=== PATIENT | female | born 1995 | race Caucasian/White ===

== ENCOUNTER → 2017-04-27 02:45 | Observation (INO) ==
[2017-04-26 23:44] LABS: Bilirubin,Urine Negative (Negative); Blood,Urine Negative (Negative); Clarity,Urine Turbid (Clear); Color,Urine Yellow (Yellow); Glucose,Urine (UA) Normal (Normal); Ketones,Urine Negative (Negative); Leukocyte Esterase,Urine Large (Negative); Nitrite,Urine Negative (Negative); PH,Urine 7.5 pH Units (5.0-8.0); Protein,Urine Trace mg/dL (Neg-Trace); Specific Gravity,Urine 1.019 (1.010-1.025); Urobilinogen,Urine Normal (Normal)
[2017-04-26 23:46] LABS: Bacteria,Urine Many per hpf (None-Few); Hyaline Casts,Urine Few per lpf (None-Few); RBC,Urine 0-3 per hpf (0-3); Squamous Epithelial Cell,Urine Many per lpf (None-Few); WBC,Urine 30-50 per hpf (0-3)
[2017-04-26 23:58] LABS: Amorphous Sediment,Urine Many (Few); Mucus,Urine Moderate (Few); Yeast,Urine Moderate per hpf (None Seen)
[2017-04-27 00:17] LABS: Basophils % 0.4 %; Eosinophils # 0.1 K/mcL (0.0-0.6); Eosinophils % 1.7 %; Hematocrit 31.8 % (35.3-44.9); Hemoglobin 10.8 g/dL (11.5-15.4); Immature Granulocytes % 0.4 % (0-4); Lymphocytes # 2.5 K/mcL (0.6-4.6); Lymphocytes % 34.3 %; Mean Corpuscular Hemoglobin 32.4 pg (28.0-33.3); Mean Corpuscular Volume 95.5 fL (83.0-100.0); Mean Platelet Volume 10.6 fL (9.4-12.4); Monocytes # 0.6 K/mcL (0.0-1.3); Monocytes % 7.8 %; Platelet Count 203 K/mcL (140-400); Red Blood Count 3.33 M/mcL (3.82-4.97); Red Cell Distribution Width 13.2 % (11.5-14.5); Segmented Neutrophils % 55.4 %
[2017-04-27 01:16] LABS: Candida DNA Not Detected (Not Detect); Gardnerella DNA Not Detected (Not Detect); Trichomonas DNA Not Detected (Not Detect)
[~2017-04-27 02:45] MED LIST: NIFEdipine 10 MG CAPSULE PO ONE; Ringers Solution, Lactated 1,000 ML IVC SCH; ceFAZolin 1,000 MG in D5% in Water (Mini-Bag+) 100 ML IVPB ONE
--- NOTE | 2017-04-27 07:16 | OB/GYN Progress Note ---
Date of Encounter: 04/27/17 Time of Encounter: 02:15 - Assessment and Plan (1) 31 weeks gestation of Status: Acute (2) UTI in Status: Acute Rx for Macrobid for 7 days (3) uterine contractions in third trimester, antepartum Status: Acute Resolved with IV hydration and PO nifedipine (4) Vaginal discharge during in third trimester Status: Acute Vaginosis panel WNL Subjective - Subjective Interval history: Pt presenting to L&D at 31 weeks with c/o pelvic cramping and spotting only when wiping. Denies leaking fluid, contractions, or recent intercourse. PN course uncomplicated. Objective - Vital Signs Vital Signs: Intake and Output 04/26/17 04/26/17 04/27/17 15:59 23:59 07:59 Intake Total 900 / 900 Balance 900 / 900 Intake: IV Fluids 900 / 900 Lactated Ringers 1,000 ML 800 / 800 @ 125 mls/hr IVC .Q8H RAMÓN Rx#:[id number] Ancef 1,000 MG In 100 / 100 Dextrose 5% (Minibag+) 100 ML 100 ML @ 200 mls/ hr IVPB ONCE ONE Rx#: [id number] Other: Weight 55 kg - Exam Abdomen: Present: soft, gravid. Absent: tenderness Cervical dilation: closed Cervix effacement: thick Comments: contractions noted on EFM. Moderate amount of discharge in vagina. - Labs Labs: Abnormal lab results RBC 3.33 M/mcL (3.82-4.97) L 04/27/17 00:05 Hgb 10.8 g/dL (11.5-15.4) L 04/27/17 00:05 Hct 31.8 % (35.3-44.9) L 04/27/17 00:05 Urine Clarity Turbid (Clear) A 04/26/17 23:36 Ur Leukocyte Esterase Large (Negative) H 04/26/17 23:36 Urine Microscopic WBC 30-50 per hpf (0-3) H 04/26/17 23:36 Ur Squamous Epith Cells Many per lpf (None-Few) H 04/26/17 23:36 Amorphous Sediment Many (Few) H 04/26/17 23:36 Urine Bacteria Many per hpf (None-Few) H 04/26/17 23:36 Urine Mucus Moderate (Few) H 04/26/17 23:36 Urine Yeast Moderate per hpf (None Seen) H 04/26/17 23:36 Ur Culture Indicated? YES (NO) A 04/26/17 23:36
== END | disposition home or self-care (01) ==
LOC: 1NENULAB

== ENCOUNTER 2017-05-07 19:38 | Observation (INO) ==
[2017-05-07 19:58] VITALS: BP 119/57
--- NOTE | 2017-05-07 20:59 | OB/GYN Progress Note ---
Date of Encounter: 05/07/17 Time of Encounter: 20:56 - Assessment and Plan (1) 33 weeks gestation of Current Visit: Yes Status: Acute (2) NST (non-stress test) reactive Current Visit: Yes Status: Acute (3) uterine contractions in third trimester, antepartum Current Visit: No Status: Acute SVE closed and thick. No history of delivery. Uterine irritability noted on toco. Suspect uterine irritation from untreated UTI. Discharge home with precautions. Keflex rx given. Hydration discussed at length. Follow-up as scheduled. (4) UTI in Current Visit: No Status: Acute Subjective - Subjective Principal diagnosis: cramping Interval history: 21 year-old presenting at 33 weeks with c/o intermittent cramping for the last 2 hours. She states she was at work when the cramping started and it was occuring frequently. She denies LOF or VB. Good FM. She was given Macrobid recently for a UTI but did not take it because it made her sick. She does report lower back pain yesterday and continued urinary frequency. No fever, chills, or flank pain. No vaginal discharge, itching, or burning. Antepartum ROS: movement normal, contractions, no loss of fluid, no vaginal bleeding Objective - Vital Signs Vital Signs: Vital Signs Temp Pulse Resp BP 05/07/17 19:49 98.7 F 99 16 119/57 Intake and Output 05/07/17 05/07/17 05/07/17 07:59 15:59 23:59 Other: Weight 56 kg Patient Weight 05/07/17 23:59 Weight 56 kg - Exam FHR: category 1 FHR comments: NST reactive Abdomen: Present: soft, gravid. Absent: tenderness Uterus: Present: normal. Absent: tenderness Cervical dilation: closed, thick, high Comments: negative CVAT
== END 2017-05-07 21:00 | disposition home or self-care (01) ==
LOC: 1NENULAB
PROVIDERS: ADMIT Obstetrics & Gynecology; ATTEND Obstetrics & Gynecology

== ENCOUNTER → 2017-06-18 23:15 | Observation (INO) ==
--- NOTE | 2017-06-18 22:22 | OB/GYN History & Physical ---
Date of Encounter: 06/18/17 Time of Encounter: 22:19 History of Present Illness Chief complaint: Contractions HPI: Ms. Anderson is a 22 year old female at 39 weeks and 2 days presenting with contractions. Endorses active movement. Denies vaginal bleeding. Denies leakage of fluid. She follows with Dr. Yeh for care, Pt denies STEVENSON, vision disturbance, SOB, N/V/D. Past Med Surg Social Fam HX - Past Medical History Medical history: no medical history Psychiatric history: depression - Past Surgical History Surgical History: other - Social History Smoking Status: Current every day smoker Packs per day: 0.5 Smokeless Tobacco Status: No Alcohol use: none Drug use: none - Family History Mother Living Status: Still Living Hx Family Cardiac Disorders: No Hx Family Respiratory Disorders: No Hx Family Cancer: No Hx Family GI Disorders: No Hx Family Genitourinary Disorders: No Hx Family Endocrine Disorder: No Hx Family Musculoskeletal Disorders: No Hx Family Neuromuscular Disorders: No Hx Family Neurologic Disorders: No Hx Family HEENT Disorders: No Hx Family Autoimmune Disorders: No Hx Family Reproductive Disorders: No Hx Family Psychosocial Disorders: No Hx Family Medical Disorders: Yes (hysterectomy) Obstetrical History - Pregnancies : 3 Medications and Allergies Daily Combo Pack 1 tab PO DAILY 04/26/17 [History] Nitrofurantoin (BID) [Macrobid] 100 mg PO BID #14 capsule 04/27/17 [Rx] cephALEXin [Keflex] 500 mg PO BID #14 capsule 05/07/17 [Rx] Allergies No Known Allergies Allergy (Verified 04/26/17 23:30) Results All other labs normal. - VTE Reasons for not Prescribing Prophylaxis: Medical contraindication
--- NOTE | 2017-06-18 22:29 | OB/GYN Progress Note ---
Date of Encounter: 06/18/17 Time of Encounter: 22:25 - Assessment and Plan (1) 39 weeks gestation of Current Visit: Yes Status: Acute Pt receives appropriate care with Dr. Yeh (2) NST (non-stress test) reactive Current Visit: No Status: Acute Baseline 135 - 145 bmp NST reassuring (3) Uterine contractions during Current Visit: Yes Status: Acute Will monitor for change in cervical dilation On admission at 1/75/ballotable on admission Plan for repeat cervical dilation 2 hours from first cervical exam Plan discussed with Dennis TORRES No cervical change will discharge to home with labor precautions. Pt verbalizes understanding. Subjective - Subjective Principal diagnosis: Contractions Interval history: Ms. Anderson is a 22 year old female at 39+2 presenting with contractions this evening. Endorses active movement. Denies vaginal bleeding or leakage of fluid. She follows with Dr. Yeh for care, Pt denies STEVENSON, vision disturbance, SOB, N/V/D. Pt's was complicated by a diagnosis of anemia in two months prior to this visit, however pt has not taken recommended iron supplementation. Last US SGA labs: A+/ GBS Negative/ Rubella Immune/ Varicella IgG Positive/all other serologies negative. Antepartum ROS: new complaints, movement normal, contractions, no loss of fluid, no vaginal bleeding Objective - Vital Signs Vital Signs: Intake and Output 06/18/17 06/18/17 06/18/17 07:59 15:59 23:59 Other: Weight 57.5 kg Patient Weight 06/18/17 23:59 Weight 57.5 kg - Exam FHR: auscultation normal FHR comments: Baseline: 135 Auscultation: bilateral: normal Abdomen: Present: normal appearance, soft, gravid Uterus: Present: normal. Absent: tenderness Cervical dilation: 1, performed by RN Cervix effacement: 75 station: ballotable
== END | disposition home or self-care (01) ==
LOC: 1NENULAB
PROVIDERS: ADMIT Advanced Practice Midwife; ATTEND Advanced Practice Midwife

== ENCOUNTER 2017-06-19 02:55 | Inpatient (IN) ==
[2017-06-19] MEDS ORDERED: Famotidine 20 MG/2 ML VIAL IVP PRN (02:57)
[2017-06-19] MEDS ORDERED: Naloxone 0.4 MG/ML INJ IVP PRN (02:57)
[2017-06-19] MEDS ORDERED: Metoclopramide 10 MG/2 ML VIAL IVP PRN (02:57)
[2017-06-19] MEDS ORDERED: *HR* Nalbuphine 20 MG/ML AMPUL IVP PRN (03:00)
[2017-06-19] MEDS ORDERED: Ringers Solution, Lactated 1,000 ML IVC SCH (03:00)
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
[2017-06-19] MEDS ORDERED: Lidocaine 1% 20 ML MDV ONE (03:11)
[2017-06-19] MEDS ORDERED: Oxytocin 20 units/ LR 1000 mL 20 UNIT/1,000 ML BAG IVC ONE ×2 (03:12→07:08)
[2017-06-19 03:17] LABS: Basophils % 0.2 %; Eosinophils % 0.5 %; Hematocrit 35.5 % (35.3-44.9); Hemoglobin 11.9 g/dL (11.5-15.4); Immature Granulocytes % 0.4 % (0-4); Lymphocytes # 3.2 K/mcL (0.6-4.6); Lymphocytes % 37.6 %; Mean Corpuscular HGB Conc 33.5 g/dL (31.6-35.5); Mean Corpuscular Hemoglobin 31.4 pg (28.0-33.3); Mean Corpuscular Volume 93.7 fL (83.0-100.0); Monocytes # 0.5 K/mcL (0.0-1.3); Neutrophils # 4.7 K/mcL (1.6-8.9); Platelet Count 234 K/mcL (140-400); Red Blood Count 3.79 M/mcL (3.82-4.97); Red Cell Distribution Width 13.6 % (11.5-14.5); Segmented Neutrophils % 55.3 %
[2017-06-19] MEDS ORDERED: Epidural Premix (fent/bupiv) 110 ML EP ONE (03:19)
[2017-06-19] MEDS ORDERED: *HR* FentaNYL (PF) 100 MCG/2 ML VIAL ONE (03:46)
[2017-06-19] MEDS ORDERED: Bupivacaine-MPF 0.25% 10 ML VIAL ONE (03:47)
--- NOTE | 2017-06-19 04:14 | Anesthesia Evaluation PreOp ---
Date of Encounter: 06/19/17 Time of Encounter: 03:52 - Past History Planned Operation: vaginal del, , 8cm Cardiac History: Denies any Significant Hx Pulmonary History: Denies Any Significant HX SENIOR GAMEMASTER History: Denies Any Significant HX Other Medical History: Other (? drug usage, patient unsure) Anesthesia History: No Prior Anesthetic Complications, Past Anesthesia ( previous epidural x1,) : Yes (term) Alcohol Use: none Drug use: none Medications and Allergies No Known Home Drugs 06/19/17 [History] Allergies No Known Allergies Allergy (Verified 06/19/17 02:59) Anesthesia Results - Labs 06/19/17 02:55 Anesthesia Exam - HEENT Pupil (Motor): Pupils equal Mallampati: III Teeth: Normal Oral Opening: Greater than 3 - SENIOR GAMEMASTER LOC: Oriented SENIOR GAMEMASTER Motor: Normal RUE, Normal LUE, Normal RLE, Normal LLE, Normal Face SENIOR GAMEMASTER Sensory: Normal: RUE, LUE, RLE, LLE, Face - Cardiac Rhythm: Regular Murmur: None - Pulmonary Breath Sounds: bilateral Clear Respiratory Effort: Symmetrical Anesthesia Assess/Plan ASA Score: 2 Modified Elsa Scale for Level of Consciousness: Cooperative, oriented, and tranquil Anesthetic Plan: General, Regional (CSE) Monitoring Plan: Standard Monitors
--- NOTE | 2017-06-19 04:24 | Anesthesia Procedures ---
Date of Encounter: 06/19/17 Time of Encounter: 03:52 Procedures: Anesthesia - Epidural/Spinal Patient ID/Chart reviewed: Yes Patient examined: Yes OB Eval: Gestational age: term OB Eval: Dilated at (cm): 8 OB Eval: Contractions: Non-stressed pattern Consent Obtained: Yes Supplemental Oxygen: None/Room Air Site Prep: Aseptic Technique, Sterile prep and drape, 0.5% Chlorhexidine/Alcohol Patient position: right lateral decubitus Local Anesthetic: Lidocaine 1% Amount of Local Anesthetic used: 2 Touhy Needle Depth (cm): 5 Catheter Depth at Skin (cm): 9 Test Dose (1.5% Lido + Epi): Volume given (mls): 3 Test Dose Result: Negative (awaited 5min post spinal dosage for test.) Loading Dose: Other: 3ml from solution Loading Dose Administered: Thru Catheter Infusion Med: 0.125% Bupivacaine w/ 2 mcg/ml Fentanyl Infusion Rate (mls/hr): [address]: Tegaderm, Tape Interspace Used: L3-L4 Loss of Resistance (BELLA): Yes (saline) Blood: No CSF: Yes (with 27g pencan clear) Paresthesia: No Procedure: vss though out, FHR stable though out per RN's, lateral positioning, CSE, 1ml 0.25% bup plain with 10mcg of FENT all PF via 27g pencan though epidural needle , clear CSF. catheter easy placement - heme, -csf - parathesia to cath threading. taped to skin. eleonora well.
--- NOTE | 2017-06-19 05:23 | OB/GYN Procedure Note ---
Delivery - Delivery Date: 06/19/17 Provider: Shaina Collins Intrapartum events: precipitous labor- <3hr Delivery induction: none Delivery augmentation: rupture of membranes Delivery monitor: external FHT, external uterine Anesthesia: epidural Estimated Blood Loss: 150 - Infant (s) A Delivery Date: 06/19/17 Delivery Time: 05:29 Presentation: vertex Position: unknown Route of delivery: Gender: Female Viability: Viable Pounds: 6 Ounces: 9 Weight Gram: 2990 kg at 1 minute: 9 at 5 mins: 9 Shoulder Dystocia: not encountered Specimens collected: cord blood Placenta: spontaneous Cord: nuchal cord - Repair Episiotomy: none Laceration Description: None - Complications Delivery complications: none Delivery comments: Pt progressed to complete. CNM at bedside after emesis attempted to find heart tones, Repositioned patient from left lateral, head already delivered. Legs positioned back and shoulders easily followed. No nuchal or shoulder dystocia encountered. infant placed on maternal abdomen stimulated to cry. APGARS 9/9. delayed cord clamping, Placenta delivered spontaneously (benigno). Fundus firm EBL 150. Perineum intact. Mother and bonding skin to skin - Disposition Mom disposition: stable in LDR disposition: stable in LDR
[2017-06-19] MEDS ORDERED: Lanolin 7 G OINT...G. TP PRN (07:46)
[2017-06-19] MEDS ORDERED: Benzocaine/Menthol 56 GM AEROSOL SPRAY TP PRN (07:46)
[2017-06-19] MEDS ORDERED: Oxytocin 20 units/ LR 1000 mL 20 UNIT/1,000 ML BAG IVC SCH (07:46)
[2017-06-19] MEDS ORDERED: Ibuprofen 600 MG TABLET PO PRN (07:46)
[2017-06-19] MEDS: Prenatal Vit/FA 1 EACH TABLET PO SCH (10:00)
[2017-06-19] MEDS: Acetaminophen 325 MG TABLET PO PRN ×2 (10:00→18:01)
[2017-06-20 09:32] VITALS: BP 105/60
[2017-06-20] MEDS: Prenatal Vit/FA 1 EACH TABLET PO SCH (10:01)
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
== END 2017-06-20 14:35 | disposition home or self-care (01) | DRG 560 ==
LOC: 1NENULAB 02:55 → 1NENUOBS 07:45
PROVIDERS: ADMIT Student in an Organized Health Care Education/Training Program; ATTEND Student in an Organized Health Care Education/Training Program